=== PATIENT | female | born 2000 | race Two or more races ===

== ENCOUNTER 2019-11-18 11:29 | Emergency (ER) | payer BC ==
[~2019-11-18] VITALS: Ht 154.9 cm; Wt 87.0 kg
[2019-11-18 11:38] VITALS: BP 121/65
[2019-11-18 12:09] LABS: BASOPHILS # (AUTO) 0.02 x10^3/uL (0-0.1); BASOPHILS % (AUTO) 0 % (0-1); EOSINOPHILS # (AUTO) 0.08 x10^3/uL (0-0.4); EOSINOPHILS % (AUTO) 1 % (1-7); LYMPHOCYTES # (AUTO) 2.75 x10^3/uL (1-3.4); LYMPHOCYTES % (AUTO) 45 % (22-44); MD NO; MEAN CORPUSCULAR HEMOGLOBIN 31.1 pg (27.0-34.8); MEAN CORPUSCULAR HGB CONC 33.5 g/dL (32.4-35.8); MEAN CORPUSCULAR VOLUME 92.9 fL (80-100); MEAN PLATELET VOLUME 8.3 fL (7.4-10.4); MONOCYTES # (AUTO) 0.39 x10^3/uL (0.2-0.8); MONOCYTES % (AUTO) 6 % (2-9); NEUTROPHILS # (AUTO) 2.91 x10^3/uL (1.8-6.8); NEUTROPHILS % (AUTO) 47 % (42-75); PLATELET COUNT 327 x10^3/uL (130-400); RED BLOOD COUNT 4.24 x10^6/uL (3.82-5.3); RED CELL DISTRIBUTION WIDTH 13.8 % (9.6-15.2)
--- NOTE | 2019-11-18 12:11 | NUR ---
UA provided by pt and sent to lab.
[2019-11-18 12:20] LABS: ALANINE AMINOTRANSFERASE 41 U/L (12-78); ALBUMIN 3.5 g/dL (3.4-5.0); ANION GAP 7 mmol/L (5-15); CALCIUM 8.2 mg/dL (8.5-10.1); CHLORIDE 111 mmol/L (98-107)
[2019-11-18 12:25] LABS: ALKALINE PHOSPHATASE 35 U/L (45-117); BILIRUBIN,TOTAL 0.4 mg/dL (0.2-1.0); CREATININE 0.72 mg/dL (0.55-1.02); TOTAL PROTEIN 7.2 g/dL (6.4-8.2)
[2019-11-18 12:48] LABS: MICROSCOPIC INDICATED
== END 2019-11-18 13:55 | disposition home or self-care (01) ==
LOC: ED 13:00
DX: O20.0 Threatened abortion (principal)
CPT/HCPCS: 36415; 76801; 80053; 81001; 84702; 85025; 86901; 87077; 87086; 87186; 99284

== ENCOUNTER 2019-12-04 18:21 | Emergency (ER) | payer BC ==
[~2019-12-04] VITALS: Ht 165.1 cm; Wt 88.0 kg
--- NOTE | 2019-12-04 19:18 | NUR ---
THIS IS A 19 YO F W/ C/O WORSENING VAGINAL BLEEDING THAT STARTED THIS MORNING. PT IS 6 WEEKS . PT ALSO STATES ABD CRAMPING THAT STARTED TODAY. VS STABLE. CALL LIGHT IN REACH. PT RESTING ON GURNEY AWAITING EVAL. DENIES FURTHER NEEDS AT THIS TIME.
--- NOTE | 2019-12-04 19:41 | NUR ---
PT AMBULATED TO THE BR W/ A STEADY GAIT. GIVE URINE COLLECTION CUP.
[2019-12-04 20:06] LABS: BASOPHILS # (AUTO) 0.04 x10^3/uL (0-0.1); BASOPHILS % (AUTO) 1 % (0-1); EOSINOPHILS # (AUTO) 0.06 x10^3/uL (0-0.4); EOSINOPHILS % (AUTO) 1 % (1-7); LYMPHOCYTES # (AUTO) 3.15 x10^3/uL (1-3.4); LYMPHOCYTES % (AUTO) 42 % (22-44); MD NO; MEAN CORPUSCULAR HEMOGLOBIN 30.9 pg (27.0-34.8); MEAN CORPUSCULAR VOLUME 93.4 fL (80-100); MEAN PLATELET VOLUME 8.3 fL (7.4-10.4); MONOCYTES # (AUTO) 0.39 x10^3/uL (0.2-0.8); MONOCYTES % (AUTO) 5 % (2-9); NEUTROPHILS # (AUTO) 3.92 x10^3/uL (1.8-6.8); NEUTROPHILS % (AUTO) 52 % (42-75); PLATELET COUNT 325 x10^3/uL (130-400); RED BLOOD COUNT 4.56 x10^6/uL (3.82-5.3); RED CELL DISTRIBUTION WIDTH 13.5 % (9.6-15.2)
[2019-12-04 20:15] LABS: ALBUMIN 3.8 g/dL (3.4-5.0); ANION GAP 6 mmol/L (5-15); CHLORIDE 108 mmol/L (98-107); CREATININE 0.68 mg/dL (0.55-1.02)
[2019-12-04 20:42] LABS: CULTURE INDICATED? YES; MICROSCOPIC INDICATED
--- NOTE | 2019-12-04 20:49 | NUR ---
ALL TESTS RESULTED AT THIS TIME. PT IS UP FOR RECHECK.
[2019-12-04] MEDS ORDERED: HYDROcodone/APAP 5/325 TABLET PO PRN (21:30)
[2019-12-04 21:35] VITALS: BP 106/60
[2019-12-04] MEDS ORDERED: HYDROcodone/APAP 5/325 TABLET ONE (21:35)
--- NOTE | 2019-12-04 21:41 | NUR ---
Medicated per MAR, dc info given, pt verbalized undertanding.
== END 2019-12-04 21:44 | disposition home or self-care (01) ==
LOC: ED 21:38
DX: O03.9 Complete or unspecified spontaneous abortion without complication (principal); R82.71 Bacteriuria
CPT/HCPCS: 36415; 76801; 80048; 81001; 82040; 84702; 85025; 86901; 87086; 87186; 99284

== ENCOUNTER 2020-04-30 13:40 | Emergency (ER) | payer BC ==
[~2020-04-30] VITALS: Ht 154.9 cm; Wt 92.8 kg
--- NOTE | 2020-04-30 14:15 | NUR ---
"SO I'M ROUGHLY 10 WEEKS AND I'VE HAD 2 MISCARRIAGES BEFORE AND THEY [OB] TOLD ME TO COME IN BECAUSE I'M SPOTTING. LAST NIGHT I WAS HAVING LOWER BACK PAIN". PINK SPOTTING W/ 2 SPECKS OF RED BLOOD. DENIES CRAMPING. OB DR. PEDRAZA AT [facility]. A2
--- NOTE | 2020-04-30 14:50 | NUR ---
REPORT TO EVERETTE GAONA
--- NOTE | 2020-04-30 14:50 | NUR ---
REPORT RECEIVED FROM JIMENEZ ORTIZ. PLAN OF CARE DISCUSSED.
[2020-04-30 14:56] LABS: MICROSCOPIC INDICATED
--- NOTE | 2020-04-30 14:56 | NUR ---
PATIENT BACK FROM
[2020-04-30 15:03] VITALS: BP 116/63
--- NOTE | 2020-04-30 15:19 | NUR ---
MD ANGELA IN ROOM
--- NOTE | 2020-04-30 15:33 | NUR ---
Patient given discharge instructions and they have confirmed that they understand the instructions and for follow up care. Patient ambulatory with steady gait.
== END 2020-04-30 15:40 | disposition home or self-care (01) ==
LOC: ED 15:15
DX: O36.4XX0 Maternal care for intrauterine death, not applicable or unspecified (principal); R10.2 Pelvic and perineal pain; M54.5 Low back pain; Z3A.01 Less than 8 weeks gestation of pregnancy
CPT/HCPCS: 36415; 76801; 81001; 84702; 86901; 87086; 99284

== ENCOUNTER 2020-05-03 19:55 | Emergency (ER) | payer BC ==
[~2020-05-03] VITALS: Ht 154.9 cm; Wt 92.0 kg
--- NOTE | 2020-05-03 20:20 | NUR ---
Late entry from 2019: Patient presents to ER stating she is 6 weeks and miscarrying. Patient was seen on and told she was having a miscarriage and she would pass the fetus. Patient has been bleeding since she was seen however it became worse yesterday with increased low abd pain. She has been saturating 1 pad/hr. Patient is in obvious pain. Respirations even and unlabored.
[2020-05-03] MEDS ORDERED: MORPHINE SULFATE 4 MG/ML, 1ML ONE ×2 (20:25→21:35)
[2020-05-03] MEDS ORDERED: ONDANSETRON 2MG/ML, 2ML ONE (20:25)
[2020-05-03] MEDS ORDERED: SODIUM CHLORIDE FLUSH 10ML SYR IVF ONE (20:30)
[2020-05-03] MEDS ORDERED: ONDANSETRON 2MG/ML, 2ML IVPush ONE (20:30)
[2020-05-03] MEDS: MORPHINE SULFATE 4 MG/ML, 1ML IVPush PRN ×2 (20:43→21:40)
[2020-05-03 21:00] LABS: BASOPHILS # (AUTO) 0.15 x10^3/uL (0-0.1); BASOPHILS % (AUTO) 2 % (0-1); EOSINOPHILS # (AUTO) 0.17 x10^3/uL (0-0.4); EOSINOPHILS % (AUTO) 2 % (1-7); LYMPHOCYTES # (AUTO) 3.21 x10^3/uL (1-3.4); LYMPHOCYTES % (AUTO) 33 % (22-44); MD NO; MEAN CORPUSCULAR HEMOGLOBIN 30.9 pg (27.0-34.8); MEAN CORPUSCULAR HGB CONC 33.2 g/dL (32.4-35.8); MEAN CORPUSCULAR VOLUME 92.9 fL (80-100); MEAN PLATELET VOLUME 8.3 fL (7.4-10.4); MONOCYTES # (AUTO) 0.53 x10^3/uL (0.2-0.8); MONOCYTES % (AUTO) 5 % (2-9); NEUTROPHILS # (AUTO) 5.71 x10^3/uL (1.8-6.8); NEUTROPHILS % (AUTO) 59 % (42-75); PLATELET COUNT 345 x10^3/uL (130-400); RED BLOOD COUNT 4.36 x10^6/uL (3.82-5.3); RED CELL DISTRIBUTION WIDTH 12.7 % (9.6-15.2)
[2020-05-03 21:12] LABS: ALBUMIN 3.7 g/dL (3.4-5.0); ANION GAP 8 mmol/L (5-15); CHLORIDE 110 mmol/L (98-107)
[2020-05-03 21:30] LABS: CREATININE 0.61 mg/dL (0.55-1.02)
[2020-05-03 22:30] VITALS: BP 112/65
== END 2020-05-03 23:15 | disposition home or self-care (01) ==
LOC: ED 23:07
DX: O03.4 Incomplete spontaneous abortion without complication (principal); O36.4XX0 Maternal care for intrauterine death, not applicable or unspecified; Z3A.01 Less than 8 weeks gestation of pregnancy
CPT/HCPCS: 36415; 76830; 80048; 82040; 84702; 85025; 86901; 96374; 96375; 96376; 99284; J2270; J2405

== ENCOUNTER 2020-09-14 20:03 | Emergency (ER) | payer BC ==
[~2020-09-14] VITALS: Ht 154.9 cm; Wt 98.6 kg
[2020-09-14] MEDS ORDERED: ACETAMINOPHEN 500 MG TABLET ONE (20:46)
[2020-09-14] MEDS ORDERED: KETOROLAC 30 MG/1 ML ONE (20:46)
--- NOTE | 2020-09-14 20:50 | NUR ---
SPOKE WITH PA AND WITH PT ABOUT TAKING TORADOL WITH CHARTED REACTION TO IBUPROFEN. DETERMINED THAT SHE WOULD BE SAFE TAKING THIS MEDICATION.
[2020-09-14 20:54] LABS: BASOPHILS % (AUTO) 1 % (0-1); EOSINOPHILS % (AUTO) 0 % (1-7); LYMPHOCYTES % (AUTO) 26 % (22-44); MEAN CORPUSCULAR HEMOGLOBIN 29.2 pg (27.0-34.8); MEAN CORPUSCULAR HGB CONC 32.6 g/dL (32.4-35.8); MEAN PLATELET VOLUME 7.3 fL (7.4-10.4); MONOCYTES % (AUTO) 10 % (2-9); NEUTROPHILS % (AUTO) 63 % (42-75); PLATELET COUNT 316 x10^3/uL (130-400); RED BLOOD COUNT 4.47 x10^6/uL (3.82-5.3)
[2020-09-14 20:58] LABS: MD NO
[2020-09-14] MEDS ORDERED: ACETAMINOPHEN 500 MG TABLET PO ONE (21:00)
[2020-09-14] MEDS ORDERED: SODIUM CHLORIDE 0.9% 1,000ML IVBOLUS ONE (21:00)
[2020-09-14] MEDS ORDERED: KETOROLAC 30 MG/1 ML IVPush ONE (21:00)
[2020-09-14 21:01] LABS: ALBUMIN 3.7 g/dL (3.4-5.0); ANION GAP 5 mmol/L (5-15); CALCIUM 8.9 mg/dL (8.5-10.1); CHLORIDE 108 mmol/L (98-107); CREATININE 0.81 mg/dL (0.55-1.02)
[2020-09-14 21:48] LABS: MICROSCOPIC AUTO
[2020-09-14] MEDS ORDERED: CEFTRIAXONE PMX 1GM/50ML 50 ML IV ONE (22:30)
[2020-09-14] MEDS ORDERED: CEFTRIAXONE PMX 1GM/50ML 50 ML ONE (22:41)
[2020-09-14 22:48] VITALS: BP 102/72
== END 2020-09-14 23:00 | disposition home or self-care (01) ==
LOC: ED 21:11
DX: N10 Acute pyelonephritis (principal); R50.9 Fever, unspecified; R00.0 Tachycardia, unspecified
CPT/HCPCS: 36415; 71045; 80048; 81001; 82040; 83605; 84703; 85025; 87077; 87086; 96361; 96365; 99284; J0696; J7030; 87186

== ENCOUNTER 2021-03-08 17:12 | Emergency (ER) | payer BC ==
[~2021-03-08] VITALS: Ht 154.9 cm; Wt 102.1 kg
[2021-03-08] MEDS ORDERED: PROG100C16 PO (18:23)
[2021-03-08] MEDS ORDERED: ASPI-963 PO (18:23)
[2021-03-08] MEDS ORDERED: METOCLOPRAMIDE 5 MG/ML, 2ML IVPush ONE (18:30)
[2021-03-08] MEDS ORDERED: SODIUM CHLORIDE 0.9% 1,000ML IVBOLUS ONE (18:30)
[2021-03-08] MEDS ORDERED: SODIUM CHLORIDE FLUSH 10ML SYR IVF ONE (18:30)
[2021-03-08 18:34] LABS: BASOPHILS % (AUTO) 1 % (0-1); EOSINOPHILS % (AUTO) 1 % (1-7); LYMPHOCYTES % (AUTO) 38 % (22-44); MEAN CORPUSCULAR HEMOGLOBIN 30.5 pg (27.0-34.8); MEAN CORPUSCULAR HGB CONC 33.6 g/dL (32.4-35.8); MEAN PLATELET VOLUME 7.7 fL (7.4-10.4); MONOCYTES % (AUTO) 5 % (2-9); NEUTROPHILS % (AUTO) 55 % (42-75); PLATELET COUNT 350 x10^3/uL (130-400); RED BLOOD COUNT 4.58 x10^6/uL (3.82-5.3); RED CELL DISTRIBUTION WIDTH 13.1 % (9.6-15.2)
[2021-03-08 18:44] LABS: MICROSCOPIC AUTO
[2021-03-08 18:45] LABS: ALBUMIN 3.9 g/dL (3.4-5.0); ANION GAP 6 mmol/L (5-15); CALCIUM 9.3 mg/dL (8.5-10.1); CHLORIDE 106 mmol/L (98-107); CREATININE 0.57 mg/dL (0.55-1.02)
[2021-03-08] MEDS ORDERED: METOCLOPRAMIDE 5 MG/ML, 2ML ONE (19:01)
--- NOTE | 2021-03-08 19:11 | NUR ---
TASK NURSE. PT TOLERATING MEDS WELL. VSS. PT IN NAD. ATTACHED TO MONITORS. BREATHING EVEN AND UNLABORED. NO CURRENT VOMITING.
[2021-03-08 19:13] VITALS: BP 119/65
--- NOTE | 2021-03-08 19:21 | NUR ---
REPORT TO AILYN GAONA.
--- NOTE | 2021-03-08 20:24 | NUR ---
Assist RN: Discharge instructions given. All questons and conerns addressed. Patient ambulatory with a steady gait. Belongings with patient.
== END 2021-03-08 20:26 | disposition home or self-care (01) ==
LOC: ED 20:20
DX: O21.0 Mild hyperemesis gravidarum (principal); R42 Dizziness and giddiness; Z3A.10 10 weeks gestation of pregnancy
CPT/HCPCS: 36415; 80048; 81001; 82040; 85025; 87086; 96361; 96374; 99283; J2765; J7030